=== PATIENT | male | born 1950 | race Caucasian/White ===

== ENCOUNTER → 2016-07-30 | Outpatient (CLI) | payer OTHER ==
[~2016-07-30] MED LIST: AMBIEN10 M1 PO; OMEPRAZOLE20 M2 PO; REMERON SOLTAB45 MG PO; REMERON45 M1 PO; SIMVASTATIN40 MG PO; VISTARIL50 MG PO
[2016-07-30 10:03] LABS: BASO # 0.1 10*3/uL (0.0-0.1); BASO % 0.8 % (0.0-1.0); EOS # 0.3 10*3/uL (0.0-0.4); EOS % 2.7 % (1.0-4.0); HEMATOCRIT 44.7 % (42.0-52.0); IG # 0.1 10*3/uL (0.0-0.1); LYMPH # 2.5 10*3/uL (1.3-4.4); LYMPH % 21.8 % (27.0-41.0); MEAN CORPUSCULAR HGB 32.5 pg (27.0-31.0); MEAN CORPUSCULAR HGB CONC 33.6 g/dl (33.0-37.0); MEAN PLATELET VOLUME 10.1 fl (9.6-12.3); MONO # 1.4 10*3/uL (0.1-1.0); MONO % 12.4 % (3.0-9.0); NEUT # 7.1 10*3/uL (2.3-7.9); NEUT % 61.9 % (47.0-73.0); PLATELET COUNT AUTOMATED 238 10*3/uL (130-400); RED BLOOD COUNT 4.61 10*6/uL (4.50-5.90); WHITE BLOOD COUNT 11.4 10*3/uL (4.8-10.8)
== END | disposition home or self-care (01) ==
LOC: LAB 09:36
PROVIDERS: Family Medicine
DX: D72.829 Elevated white blood cell count, unspecified (principal)

== ENCOUNTER → 2017-07-11 | Outpatient (CLI) | payer OTHER ==
[2017-07-11 12:12] LABS: ALBUMIN 3.5 gm/dl (3.1-4.5); ALKALINE PHOSPHATASE 66 U/L (45-117); BUN 13 mg/dl (7-24); CHLORIDE 102 mmol/L (98-107); CREATININE 0.97 mg/dL (0.70-1.30); POTASSIUM 3.7 mmol/L (3.5-5.1); SGOT/AST 9 IU/L (3-35); SGPT/ALT 17 U/L (12-78); SODIUM 137 mmol/L (136-145); TOTAL PROTEIN 7.3 gm/dL (6.4-8.2)
[2017-07-11 12:21] LABS: BASO # 0.1 10*3/uL (0.0-0.1); BASO % 1.2 % (0.0-1.0); EOS # 0.1 10*3/uL (0.0-0.4); EOS % 0.9 % (1.0-4.0); HEMATOCRIT 45.3 % (42.0-52.0); HEMOGLOBIN 15.3 g/dl (14.0-18.0); LYMPH # 2.2 10*3/uL (1.3-4.4); LYMPH % 23.8 % (27.0-41.0); MEAN CELL VOLUME 96.2 fl (80.0-94.0); MEAN CORPUSCULAR HGB 32.5 pg (27.0-31.0); MEAN CORPUSCULAR HGB CONC 33.8 g/dl (33.0-37.0); MEAN PLATELET VOLUME 11.1 fl (9.6-12.3); MONO # 0.2 10*3/uL (0.1-1.0); MONO % 1.6 % (3.0-9.0); NEUT # 6.4 10*3/uL (2.3-7.9); NEUT % 70.2 % (47.0-73.0); PLATELET COUNT AUTOMATED 180 10*3/uL (130-400); RED BLOOD COUNT 4.71 10*6/uL (4.50-5.90); RED CELL DISTRI WIDTH 12.6 % (0-14.5); WHITE BLOOD COUNT 9.1 10*3/uL (4.8-10.8)
== END | disposition home or self-care (01) ==
LOC: LAB 11:14
PROVIDERS: Internal Medicine
DX: C34.90 Malignant neoplasm of unspecified part of unspecified bronchus or lung (principal)

== ENCOUNTER → 2017-07-18 | Outpatient (CLI) | payer OTHER ==
[2017-07-18 09:16] LABS: HEMATOCRIT 39.7 % (42.0-52.0); HEMOGLOBIN 13.6 g/dl (14.0-18.0); MEAN CORPUSCULAR HGB 32.5 pg (27.0-31.0); MEAN CORPUSCULAR HGB CONC 34.3 g/dl (33.0-37.0); MEAN PLATELET VOLUME 9.6 fl (9.6-12.3); PLATELET COUNT AUTOMATED 142 10*3/uL (130-400); RED BLOOD COUNT 4.18 10*6/uL (4.50-5.90); RED CELL DISTRI WIDTH 12.3 % (0-14.5); WHITE BLOOD COUNT 3.1 10*3/uL (4.8-10.8)
[2017-07-18 09:39] LABS: ALBUMIN 3.2 gm/dl (3.1-4.5); ALKALINE PHOSPHATASE 72 U/L (45-117); BUN 6 mg/dl (7-24); CHLORIDE 105 mmol/L (98-107); CREATININE 0.81 mg/dL (0.70-1.30); POTASSIUM 3.5 mmol/L (3.5-5.1); SGOT/AST 15 IU/L (3-35); SGPT/ALT 19 U/L (12-78); SODIUM 139 mmol/L (136-145); TOTAL CELLS COUNTED 100 #CELLS; TOTAL PROTEIN 6.9 gm/dL (6.4-8.2)
[2017-07-18 09:40] LABS: PLATELET SUFFICIENCY NORMAL (NORMAL)
[2017-07-18 09:41] LABS: ATYPICAL LYMPHS 3 % (0-0)
== END | disposition home or self-care (01) ==
LOC: LAB 08:54
PROVIDERS: Internal Medicine
DX: C34.90 Malignant neoplasm of unspecified part of unspecified bronchus or lung (principal)

== ENCOUNTER → 2017-08-01 | Outpatient (CLI) | payer OTHER ==
[2017-08-01 11:37] LABS: BASO # 0.1 10*3/uL (0.0-0.1); EOS % 0.1 % (1.0-4.0); HEMATOCRIT 45.8 % (42.0-52.0); HEMOGLOBIN 15.2 g/dl (14.0-18.0); LYMPH # 3.1 10*3/uL (1.3-4.4); LYMPH % 29.1 % (27.0-41.0); MEAN CELL VOLUME 93.1 fl (80.0-94.0); MEAN CORPUSCULAR HGB 30.9 pg (27.0-31.0); MEAN CORPUSCULAR HGB CONC 33.2 g/dl (33.0-37.0); MEAN PLATELET VOLUME 9.5 fl (9.6-12.3); MONO # 0.2 10*3/uL (0.1-1.0); MONO % 1.9 % (3.0-9.0); NEUT % 66.5 % (47.0-73.0); PLATELET COUNT AUTOMATED 337 10*3/uL (130-400); RED BLOOD COUNT 4.92 10*6/uL (4.50-5.90); RED CELL DISTRI WIDTH 12.8 % (0-14.5); WHITE BLOOD COUNT 10.5 10*3/uL (4.8-10.8)
[2017-08-01 12:09] LABS: ALBUMIN 3.4 gm/dl (3.1-4.5); CREATININE 1.8 mg/dL (0.70-1.30); POTASSIUM 4.2 mmol/L (3.5-5.1); TOTAL PROTEIN 7.7 gm/dL (6.4-8.2)
== END ==
LOC: LAB 11:17
PROVIDERS: Internal Medicine
DX: C34.90 Malignant neoplasm of unspecified part of unspecified bronchus or lung (principal)

== ENCOUNTER → 2017-08-08 | Outpatient (CLI) | payer OTHER ==
[2017-08-08 14:32] LABS: BASO # 0.1 10*3/uL (0.0-0.1); BASO % 1.2 % (0.0-1.0); EOS # 0.1 10*3/uL (0.0-0.4); EOS % 1.2 % (1.0-4.0); HEMATOCRIT 36.5 % (42.0-52.0); HEMOGLOBIN 12.4 g/dl (14.0-18.0); LYMPH # 2.9 10*3/uL (1.3-4.4); LYMPH % 50.2 % (27.0-41.0); MEAN CELL VOLUME 93.1 fl (80.0-94.0); MEAN CORPUSCULAR HGB 31.6 pg (27.0-31.0); MEAN PLATELET VOLUME 10.5 fl (9.6-12.3); MONO # 0.4 10*3/uL (0.1-1.0); MONO % 6.6 % (3.0-9.0); NEUT # 2.3 10*3/uL (2.3-7.9); NEUT % 40.5 % (47.0-73.0); PLATELET COUNT AUTOMATED 96 10*3/uL (130-400); RED BLOOD COUNT 3.92 10*6/uL (4.50-5.90); RED CELL DISTRI WIDTH 12.6 % (0-14.5); WHITE BLOOD COUNT 5.8 10*3/uL (4.8-10.8)
[2017-08-08 14:49] LABS: ALBUMIN 3.3 gm/dl (3.1-4.5); CREATININE 1.67 mg/dL (0.70-1.30)
== END | disposition home or self-care (01) ==
LOC: LAB 13:47
PROVIDERS: Internal Medicine
DX: C34.90 Malignant neoplasm of unspecified part of unspecified bronchus or lung (principal)

== ENCOUNTER → 2017-08-23 | Outpatient (CLI) | payer OTHER ==
[2017-08-23 10:21] LABS: HEMATOCRIT 35.1 % (42.0-52.0); HEMOGLOBIN 12.2 g/dl (14.0-18.0); MEAN CELL VOLUME 92.1 fl (80.0-94.0); MEAN CORPUSCULAR HGB CONC 34.8 g/dl (33.0-37.0); MEAN PLATELET VOLUME 9.8 fl (9.6-12.3); PLATELET COUNT AUTOMATED 207 10*3/uL (130-400); RED BLOOD COUNT 3.81 10*6/uL (4.50-5.90); RED CELL DISTRI WIDTH 13.6 % (0-14.5)
[2017-08-23 10:49] LABS: ALBUMIN 3.5 gm/dl (3.1-4.5); CHLORIDE 104 mmol/L (98-107); POTASSIUM 3.9 mmol/L (3.5-5.1); SODIUM 139 mmol/L (136-145)
[2017-08-23 10:55] LABS: ALKALINE PHOSPHATASE 73 U/L (45-117); BUN 16 mg/dl (7-24); CREATININE 1.09 mg/dL (0.70-1.30); SGOT/AST 18 IU/L (3-35); SGPT/ALT 19 U/L (12-78); TOTAL PROTEIN 7.2 gm/dL (6.4-8.2)
[2017-08-23 11:23] LABS: BASOPHILS 1 % (0-1); TOTAL CELLS COUNTED 100 #CELLS
[2017-08-23 11:24] LABS: PLATELET SUFFICIENCY NORMAL (NORMAL)
== END | disposition home or self-care (01) ==
LOC: LAB 09:54
PROVIDERS: Internal Medicine
DX: C34.90 Malignant neoplasm of unspecified part of unspecified bronchus or lung (principal)

== ENCOUNTER → 2017-08-29 | Outpatient (CLI) | payer OTHER ==
[2017-08-29 11:44] LABS: EOS # 0.1 10*3/uL (0.0-0.4); EOS % 1.3 % (1.0-4.0); HEMATOCRIT 34.8 % (42.0-52.0); HEMOGLOBIN 11.6 g/dl (14.0-18.0); LYMPH # 2.1 10*3/uL (1.3-4.4); LYMPH % 53.3 % (27.0-41.0); MEAN CELL VOLUME 93.3 fl (80.0-94.0); MEAN CORPUSCULAR HGB 31.1 pg (27.0-31.0); MEAN CORPUSCULAR HGB CONC 33.3 g/dl (33.0-37.0); MEAN PLATELET VOLUME 10.1 fl (9.6-12.3); MONO # 0.4 10*3/uL (0.1-1.0); MONO % 10.6 % (3.0-9.0); NEUT # 1.3 10*3/uL (2.3-7.9); NEUT % 33.5 % (47.0-73.0); PLATELET COUNT AUTOMATED 100 10*3/uL (130-400); RED BLOOD COUNT 3.73 10*6/uL (4.50-5.90); RED CELL DISTRI WIDTH 13.3 % (0-14.5)
[2017-08-29 12:02] LABS: ALBUMIN 3.4 gm/dl (3.1-4.5); ALKALINE PHOSPHATASE 84 U/L (45-117); BUN 8 mg/dl (7-24); CHLORIDE 104 mmol/L (98-107); POTASSIUM 4.4 mmol/L (3.5-5.1); SGOT/AST 10 IU/L (3-35); SGPT/ALT 17 U/L (12-78); SODIUM 139 mmol/L (136-145); TOTAL PROTEIN 7.3 gm/dL (6.4-8.2)
== END | disposition home or self-care (01) ==
LOC: LAB 10:57
PROVIDERS: Internal Medicine
DX: C34.90 Malignant neoplasm of unspecified part of unspecified bronchus or lung (principal)

== ENCOUNTER 2018-06-03 18:33 | Emergency (ER) | payer OTHER ==
[~2018-06-03] VITALS: Ht 177.8 cm; Wt 98.9 kg
--- NOTE | ~2018-06-03 | EKG ---
[place], [place] ELECTROCARDIOGRAM REPORT NAME: BETO SAHNI UNIT #: [id number] ROOM: DOCTOR: EPIPHANY DRAFT REPORT BIRTHDATE: [birth year] [facility] Test Date: 2018-06-03 Test Time: 18:57:32 Pat Name: BETO SAHNI Department: ER Room: Gender: Dean Of Instruction: [place] Baron : 1950 Requested By: DENZEL SYKES PA-C Order Number: [id number] Reading MD: Mikayla Sampson MD Measurements Intervals [place] Rate: 106 P: 61 HI: 154 QRS: -79 QRSD: 128 T: 53 QT: 389 QTc: 517 Interpretive Statements Sinus tachycardia Right bundle branch block Inferior infarct, old Electronically Signed On 06-04-2018 14:23:47 PST by Mikayla Sampson MD CM:[email or web address]:ELECTROCARDIOGRAM REPORT [id number] DENZEL SYKES PA-C EPIPHANY DRAFT REPORT DENZEL SYKES PA-C
[2018-06-03] MEDS ORDERED: DELTASONE20 M1 PO (19:30)
[2018-06-03] MEDS ORDERED: VIBRAMYCIN100 MG PO (19:30)
[2018-06-03] MEDS ORDERED: TESSALON PERLE100 M1 PO (19:30)
[2018-06-03 19:37] LABS: BASO % 0.2 % (0.0-1.0); EOS % 0.1 % (1.0-4.0); HEMATOCRIT 42.7 % (42.0-52.0); HEMOGLOBIN 14.8 g/dl (14.0-18.0); LYMPH # 1.7 10*3/uL (1.3-4.4); LYMPH % 10.5 % (27.0-41.0); MEAN CELL VOLUME 94.1 fl (80.0-94.0); MEAN CORPUSCULAR HGB 32.6 pg (27.0-31.0); MEAN CORPUSCULAR HGB CONC 34.7 g/dl (33.0-37.0); MEAN PLATELET VOLUME 9.8 fl (9.6-12.3); MONO # 0.8 10*3/uL (0.1-1.0); NEUT # 13.2 10*3/uL (2.3-7.9); NEUT % 83.8 % (47.0-73.0); PLATELET COUNT AUTOMATED 253 10*3/uL (130-400); RED BLOOD COUNT 4.54 10*6/uL (4.50-5.90); RED CELL DISTRI WIDTH 12.8 % (0-14.5); WHITE BLOOD COUNT 15.7 10*3/uL (4.8-10.8)
[2018-06-03 19:47] LABS: INTERNATIONAL NORM RATIO 1.1 (2.0-3.5)
[2018-06-03 19:53] LABS: ALBUMIN 3.5 gm/dl (3.1-4.5); ALKALINE PHOSPHATASE 82 U/L (45-117); BUN 12 mg/dl (7-24); CHLORIDE 101 mmol/L (98-107); CREATININE 0.89 mg/dL (0.70-1.30); LIPASE 126 U/L (73-393); POTASSIUM 3.5 mmol/L (3.5-5.1); SGOT/AST 24 IU/L (3-35); SGPT/ALT 22 U/L (12-78); SODIUM 137 mmol/L (136-145); TOTAL PROTEIN 7.5 gm/dL (6.4-8.2)
[2018-06-03 19:56] LABS: TROPONIN I < 0.015 ng/ml (<0.045)
[2018-06-03 20:25] VITALS: BP 156/87
[2018-06-03 21:18] LABS: BILIRUBIN NEGATIVE (NEGATIVE); BLOOD NEGATIVE (NEGATIVE); CLARITY CLEAR (CLEAR); COLOR YELLOW (YELLOW); GLUCOSE NEGATIVE (NEGATIVE); KETONE 1+ (NEGATIVE); LEUKO ESTERASE NEGATIVE (NEGATIVE); NITRITE NEGATIVE (NEGATIVE); PH 8.5 (5.0-9.0); UROBILINOGEN 0.2 E.U./dl (0.2-1.0)
[2018-06-03 21:28] LABS: BACTERIA TRACE; MUCOUS 1+; RBC 0-2 rbc/hpf (0-2)
[2018-06-03] MEDS ORDERED: REGLAN10 M1 PO (21:34)
== END 2018-06-03 21:39 | disposition left against medical advice (07) ==
LOC: ED 18:33
PROVIDERS: Physician Assistant
DX: R42 Dizziness and giddiness (principal); R11.0 Nausea; R68.83 Chills (without fever); M54.5 Low back pain; R79.1 Abnormal coagulation profile; I25.2 Old myocardial infarction; Z79.899 Other long term (current) drug therapy; Z85.118 Personal history of other malignant neoplasm of bronchus and lung; Z90.2 Acquired absence of lung [part of]

== ENCOUNTER 2018-09-21 12:19 | Emergency (ER) | payer MEDICARE ==
[~2018-09-21] VITALS: Wt 104.3 kg
[~2018-09-21 12:19] MED LIST changes: +DELTASONE20 M1 PO; +REGLAN10 M1 PO; +TESSALON PERLE100 M1 PO; +VIBRAMYCIN100 MG PO
[2018-09-21 12:22] VITALS: BP 103/60
[2018-09-21] MEDS ORDERED: LORAZEPAM1 MG PO (12:24)
[2018-09-21] MEDS ORDERED: CITALOPRAM HYDR40 MG PO (12:24)
[2018-09-21 12:54] LABS: HEMATOCRIT 44.1 % (42.0-52.0); HEMOGLOBIN 14.4 g/dl (14.0-18.0); MEAN CELL VOLUME 98.7 fl (80.0-94.0); MEAN CORPUSCULAR HGB 32.2 pg (27.0-31.0); MEAN CORPUSCULAR HGB CONC 32.7 g/dl (33.0-37.0); MEAN PLATELET VOLUME 9.9 fl (9.6-12.3); PLATELET COUNT AUTOMATED 267 10*3/uL (130-400); RED BLOOD COUNT 4.47 10*6/uL (4.50-5.90); RED CELL DISTRI WIDTH 12.4 % (0-14.5); WHITE BLOOD COUNT 16.7 10*3/uL (4.8-10.8)
[2018-09-21 13:14] LABS: PLATELET SUFFICIENCY NORMAL (NORMAL); TOTAL CELLS COUNTED 100 #CELLS
[2018-09-21 13:20] LABS: ALBUMIN 3.2 gm/dl (3.1-4.5); ALKALINE PHOSPHATASE 96 U/L (45-117); BUN 11 mg/dl (7-24); CHLORIDE 105 mmol/L (98-107); CREATININE 1.11 mg/dL (0.70-1.30); POTASSIUM 4.1 mmol/L (3.5-5.1); SGOT/AST 9 IU/L (3-35); SGPT/ALT 15 U/L (12-78); SODIUM 139 mmol/L (136-145); TOTAL PROTEIN 7.6 gm/dL (6.4-8.2)
[2018-09-21] MEDS ORDERED: PREDNISONE50 MG PO (13:46)
[2018-09-21] MEDS ORDERED: PROAIR HFA8.5 GM INH (13:46)
[2018-09-21] MEDS ORDERED: TESSALON PERLE100 MG PO (13:46)
[2018-09-21] MEDS ORDERED: AVPAK AZITHROM250 MG PO (13:46)
== END 2018-09-21 13:49 | disposition home or self-care (01) ==
LOC: ED 12:19
PROVIDERS: Nurse Practitioner Family
DX: J20.9 Acute bronchitis, unspecified (principal); E78.5 Hyperlipidemia, unspecified; F17.290 Nicotine dependence, other tobacco product, uncomplicated; Z79.899 Other long term (current) drug therapy

== ENCOUNTER 2020-05-06 11:01 | Inpatient (IN) | payer MEDICARE ==
[~2020-05-06] VITALS: Ht 177.8 cm; Wt 95.3 kg
[2020-05-06] VITALS (11 sets, daily range): BP systolic 102–132; BP diastolic 59–82
[~2020-05-06 11:01] MED LIST changes: +AVPAK AZITHROM250 MG PO; +CITALOPRAM HYDR40 MG PO; +LORAZEPAM1 MG PO; +PREDNISONE50 MG PO; +PROAIR HFA8.5 GM INH; +REMERON15 M2 PO; -REMERON45 M1 PO; +TESSALON PERLE100 MG PO
--- NOTE | 2020-05-06 12:15 | NUR ---
YARIEL GIVEN BY RAN Álvarez RN
[2020-05-06 12:24] LABS: BASO % 0.3 % (0.0-1.0); LYMPH # 1.6 10*3/uL (1.3-4.4); LYMPH % 10.9 % (27.0-41.0); MEAN CELL VOLUME 97.6 fl (80.0-94.0); MEAN CORPUSCULAR HGB 32.3 pg (27.0-31.0); MEAN CORPUSCULAR HGB CONC 33.1 g/dl (33.0-37.0); MEAN PLATELET VOLUME 9.8 fl (9.6-12.3); MONO # 0.5 10*3/uL (0.1-1.0); MONO % 3.1 % (3.0-9.0); NEUT # 12.3 10*3/uL (2.3-7.9); NEUT % 85.4 % (47.0-73.0); PLATELET COUNT AUTOMATED 299 10*3/uL (130-400); RED BLOOD COUNT 5.02 10*6/uL (4.50-5.90); RED CELL DISTRI WIDTH 13.2 % (0-14.5); WHITE BLOOD COUNT 14.4 10*3/uL (4.8-10.8)
[2020-05-06 12:42] LABS: ALBUMIN 3.4 gm/dl (3.1-4.5); ALKALINE PHOSPHATASE 85 U/L (45-117); BUN 9 mg/dl (7-24); CHLORIDE 104 mmol/L (98-107); CREATININE 1.11 mg/dL (0.70-1.30); LIPASE 191 U/L (73-393); SGOT/AST 16 IU/L (3-35); SGPT/ALT 17 U/L (12-78); SODIUM 141 mmol/L (136-145); TOTAL PROTEIN 7.8 gm/dL (6.4-8.2)
--- NOTE | 2020-05-06 12:43 | NUR ---
YARIEL GIVEN BY ELDA Wang RN
[2020-05-06 12:45] LABS: TROPONIN I < 0.015 ng/ml (<0.045)
--- NOTE | 2020-05-06 14:28 | NUR ---
PATIENT RESTING IN BED. AMBULATED TO BATHROOM WITH STEADY GAIT. PROVIDED WITH WARM BLANKET AND HE STATES HE WAS GOING TO TRY AND GET SOME SLEEP. CALL LIGHT WITHIN REACH.
[2020-05-06 14:43] LABS: BILIRUBIN Negative (Negative); BLOOD Negative (Negative); CLARITY Cloudy (Clear); COLOR Dark Yellow (Yellow); GLUCOSE Negative (Negative); KETONE Trace (Negative); LEUKO ESTERASE Negative (Negative); NITRITE Negative (Negative); PH 5.5 (4.5-8.0); SPECIFIC GRAVITY 1.025 (1.001-1.030)
[2020-05-06 15:05] LABS: CALCIUM OXALATE CRYSTALS 2+
[2020-05-06 15:06] LABS: BACTERIA TRACE; MUCOUS 3+
--- NOTE | 2020-05-06 16:00 | NUR ---
A 69, admitted to , under the services of VALENTIN Reyes DO with a diagnosis of AFIB WITH RVR, NAUSEA VOMITING. Chief complaint is NAUSEA AND VOMITING. Patient arrived via bed from ER. Monitor applied. Initial assessment completed. Vital signs taken and recorded. VALENTIN REYES DO notified of admission to the unit. Orders received. See assessment for past medical history, medications and allergies. Patient and/or family oriented to unit. [facility] visitation policy reviewed. Clothing/patient valuable form completed. DENZEL MONTANEZ
--- NOTE | 2020-05-06 16:47 | NUR ---
[facility] CONTACTED REGARDING PT MED REC.
--- NOTE | 2020-05-06 16:47 | NUR ---
CONSULT CALLED TO DR MITCHELL ANSWERING SERVICE.
[2020-05-06] MEDS ORDERED: ZOLOFT25 MG PO (17:14)
[2020-05-06] MEDS ORDERED: 'XANAX1 MG PO (17:14)
--- NOTE | 2020-05-06 17:20 | NUR ---
DR WADDELL NOTIFIED THAT MED REC IS UPDATED.
--- NOTE | 2020-05-06 19:31 | NUR ---
24 HR chart check completed.
--- NOTE | 2020-05-06 22:28 | NUR ---
CALLED DR. DANIELSON FOR A NICOTINE PATCH, PT STATED HE ATLEAST SMOKES 1 PACK A DAY. SEE NEW ORDER.
--- NOTE | 2020-05-06 22:44 | NUR ---
TOOK NICOTINE PATCH INTO THE PATIENTS ROOM AND PATIENT THEN STATES HE MEANT HE NEEDED IT FOR THE MORNING. WHEN ASKED WHY HE DIDN'T WANT IT PLACED NOW HE SAID IT CAUSES HIM TO HAVE BAD NIGHTMARES.
[2020-05-07] VITALS (9 sets, daily range): BP systolic 93–116; BP diastolic 50–75
[2020-05-07 06:46] LABS: HEMATOCRIT 43.8 % (42.0-52.0); MEAN CELL VOLUME 99.5 fl (80.0-94.0); MEAN CORPUSCULAR HGB 31.6 pg (27.0-31.0); MEAN CORPUSCULAR HGB CONC 31.7 g/dl (33.0-37.0); MEAN PLATELET VOLUME 10.7 fl (9.6-12.3); PLATELET COUNT AUTOMATED 276 10*3/uL (130-400); RED CELL DISTRI WIDTH 13.3 % (0-14.5)
[2020-05-07 07:12] LABS: PLATELET SUFFICIENCY NORMAL (NORMAL); TOTAL CELLS COUNTED 100 #CELLS
[2020-05-07 07:13] LABS: ACT PARTIAL THROMBO TIME 38.2 SECONDS (20.0-32.1); ALBUMIN 2.8 gm/dl (3.1-4.5); ALKALINE PHOSPHATASE 62 U/L (45-117); BUN 9 mg/dl (7-24); CHLORIDE 111 mmol/L (98-107); CHOLESTEROL 117 mg/dL (<200); CREATININE 0.87 mg/dL (0.70-1.30); FREE T4 0.91 ng/dl (0.76-1.46); HDL CHOLESTEROL 31 mg/dl (40-60); INTERNATIONAL NORM RATIO 1.1 (2.0-3.5); LDL CHOLESTEROL 71 mg/dL (9-159); POTASSIUM 3.6 mmol/L (3.5-5.1); SGOT/AST 15 IU/L (3-35); SGPT/ALT 12 U/L (12-78); SODIUM 146 mmol/L (136-145); TOTAL PROTEIN 6.2 gm/dL (6.4-8.2); TRIGLYCERIDES 77 mg/dl (<150); VLDL CHOLESTEROL 15 mg/dL (6-40)
[2020-05-07 07:17] LABS: THYROID STIM HORMONE (HS) 0.524 uIU/ml (0.358-4.75)
--- NOTE | 2020-05-07 07:30 | NUR ---
TOOK OVER CARE OF PT AT THIS TIME. PT RESTING IN BED. RESPIRATIONS EASY AND UNLABORED ON ROOM AIR. NO S/S OF DISTRESS NOTED. NO COMPLAINTS VOICED BY PT. CARDIZEM DRIP AND FLUIDS INFUSING PER ORDERS. WILL CONTINUE TO MONITOR. CALL LIGHT IN REACH.
--- NOTE | 2020-05-07 12:40 | NUR ---
DR WADDELL NOTIFIED THAT PT BLOOD PRESSURE IS 90S/50S. PHYSICIAN STATES TO HOLD TOPROL XL AT THIS TIME.
--- NOTE | 2020-05-07 13:09 | NUR ---
Die Attaching Machine Tender in to talk to patient. Patient states lives at HOME with ALONE. There are NO steps in the home. Physician: KRISTEN Pharmacy: [facility] Home health services: NONE Patient's level of ADLs: INDEPENDENT Patient has working utilities: YES DME: NONE Follow-up physician's appointment after d/c: WILL BE MADE BY HOSPITALIST NURSE DIRECTOR ON DISCHARGE Does patient want to access PORTAL?: NO Discharge plan PT LIVES AT HOME ALONE AND IS INDEPENDENT IN HIS CARE. DENIES HE WILL HAVE NEEDS ON DISCHARGE. PLANS TO RETURN HOME WHEN MEDICALLY STABLE. WILL CONTINUE TO FOLLOW. STATES HE WILL HAVE A RIDE HOME.. JAVIER WYMAN
--- NOTE | 2020-05-07 14:58 | NUR ---
[facility] CALLED PER PT REQUEST. PT STATES THAT HE HAD APPOINTMENT TODAY AND ASKED THIS NURSE TO CALL AND NOTIFY CLINIC THAT HE WAS UNABLE TO MAKE APPOINTMENT DUE TO THESE CIRCUMSTANCES.
--- NOTE | 2020-05-07 15:00 | NUR ---
PT HAS CONVERTED TO NSR FROM AFIB. CARDIZEM DRIP DISCONTINUED PER DR MITCHELL ORDERS. PHYSICIAN ALSO STATES THAT HE HAS ORDERED IV DIGOXIN BUT TO NOT GIVE IT AT THIS TIME DUE TO PT CONVERTING AND HEART RATE DECREASING.
--- NOTE | 2020-05-07 21:50 | NUR ---
PT RESTING IN BED. NO C/O AT THIS TIME. RESP-EASY AND REGULAR. CALL LIGHT IN REACH. SEE SHIFT ASSESSMENT.
--- NOTE | 2020-05-07 23:14 | NUR ---
CALLED DR. MERCADO MADE AWARE PT MONITOR STRIP HAD A 9 BEAT RUN V-TACH PRIOR. THEN NOW HE IS HAVING FREQUENT RUNS OF 3 PVC'S. HR-LOW 100'S. NO ORDERS
--- NOTE | 2020-05-07 23:25 | NUR ---
CALLED DR. CAT ANSWERING SERVICE LEFT MESSAGE TO CALL REGARDING FREQUENT PVC'S. THEY WILL BEEP HIM.
[2020-05-08] VITALS: BP 134/76
--- NOTE | 2020-05-08 | NUR ---
PT RESTING IN BED. TOLERATING IV ANTIBIOTIC WITH NO PROBLEM. CALL LIGHT IN REACH. SEE SHIFT ASSESSMENT.
--- NOTE | 2020-05-08 00:07 | NUR ---
DR. JIMENEZ CALLED AWARE OF EKG CHANGES. NEW ORDER TAKEN AND REVIEWED.
--- NOTE | 2020-05-08 00:35 | NUR ---
TOLERATED TOPROL PER ORDER, SEE EMAR. CALL LIGHT IN REACH.
--- NOTE | 2020-05-08 04:00 | NUR ---
SLEEPING IN BED. RESP-EASY AND REGULAR. CALL LIGHT IN REACH.
--- NOTE | 2020-05-08 05:15 | NUR ---
ANTIBIOTICS INFUSING WITH NO PROBLEM. NO C/O AT THIS TIME. CALL LIGHT IN REACH.
[2020-05-08 05:47] LABS: BUN 8 mg/dl (7-24); CHLORIDE 110 mmol/L (98-107); CREATININE 0.86 mg/dL (0.70-1.30); POTASSIUM 3.7 mmol/L (3.5-5.1); SODIUM 144 mmol/L (136-145)
[2020-05-08 05:51] LABS: HEMATOCRIT 45.8 % (42.0-52.0); MEAN CELL VOLUME 96.6 fl (80.0-94.0); MEAN CORPUSCULAR HGB CONC 32.1 g/dl (33.0-37.0); MEAN PLATELET VOLUME 9.9 fl (9.6-12.3); PLATELET COUNT AUTOMATED 270 10*3/uL (130-400); RED BLOOD COUNT 4.74 10*6/uL (4.50-5.90)
[2020-05-08 07:07] LABS: BASOPHILS 1 % (0-1); PLATELET SUFFICIENCY NORMAL (NORMAL); TOTAL CELLS COUNTED 100 #CELLS
[2020-05-08 08:00] VITALS: BP 134/92
--- NOTE | 2020-05-08 11:43 | NUR ---
CONTINUES TO STATE HE WILL RETURN HOME WITH NO NEW NEEDS. WILL CONTINUE TO FOLLOW.
[2020-05-08] MEDS ORDERED: METOPROLOL SUCC25 M2 PO (13:39)
[2020-05-08] MEDS ORDERED: XARE20MG PO (13:39)
[2020-05-08] MEDS ORDERED: FLAGYL500 MG PO (13:40)
[2020-05-08] MEDS ORDERED: CIPRO500 MG PO (13:40)
--- NOTE | 2020-05-08 14:11 | NUR ---
[facility] Discharge instructions reviewed with patient/family. Patient receptive and verbalizes understanding. Follow-up care arranged. Written instructions given to patient/family. LUCAS BENSON
== END 2020-05-08 14:10 | disposition home or self-care (01) | DRG 872 ==
LOC: ED 11:01 → EDHOLD 13:23 → 5E 13:23
PROVIDERS: Emergency Medicine; Family Medicine; Hospitalist; ADMIT Internal Medicine; ATTEND Internal Medicine
DX: A41.9 Sepsis, unspecified organism (principal); K52.9 Noninfective gastroenteritis and colitis, unspecified; I25.10 Atherosclerotic heart disease of native coronary artery without angina pectoris; F41.9 Anxiety disorder, unspecified; R73.9 Hyperglycemia, unspecified; F17.210 Nicotine dependence, cigarettes, uncomplicated; I48.0 Paroxysmal atrial fibrillation; I45.10 Unspecified right bundle-branch block; Z68.30 Body mass index [BMI] 30.0-30.9, adult; I25.2 Old myocardial infarction; Z85.118 Personal history of other malignant neoplasm of bronchus and lung; Z80.0 Family history of malignant neoplasm of digestive organs; Z82.49 Family history of ischemic heart disease and other diseases of the circulatory system; Z79.899 Other long term (current) drug therapy

== ENCOUNTER → 2021-04-05 | Outpatient (CLI) | payer MEDICARE ==
[~2021-04-05] MED LIST changes: +'XANAX1 MG PO; +CIPRO500 MG PO; +FLAGYL500 MG PO; +METOPROLOL SUCC25 M2 PO; +XARE20MG PO; +ZOLOFT25 MG PO
== END | disposition home or self-care (01) ==
LOC: COVID19 16:56
PROVIDERS: ATTEND Internal Medicine
DX: Z11.52 Encounter for screening for COVID-19 (principal)

== ENCOUNTER → 2021-12-15 | Outpatient (CLI) | payer MEDICARE | END | disposition home or self-care (01) | LOC: CARD 01:29 | PROVIDERS: ATTEND Internal Medicine Cardiovascular Disease | DX: R94.31 Abnormal electrocardiogram [ECG] [EKG] (principal); I21.3 ST elevation (STEMI) myocardial infarction of unspecified site ==

== ENCOUNTER 2021-12-20 16:59 | Emergency (ER) | payer MEDICARE ==
[~2021-12-20] VITALS: Ht 177.8 cm; Wt 100.7 kg
[2021-12-20] MEDS ORDERED: GOOD SENSE ASPI81 M1 PO (17:04)
[2021-12-20 17:52] LABS: BASO # 0.1 10*3/uL (0.0-0.1); BASO % 0.2 % (0.0-1.0); HEMATOCRIT 47.8 % (42.0-52.0); MEAN CELL VOLUME 95.6 fl (80.0-94.0); MEAN CORPUSCULAR HGB 31.2 pg (27.0-31.0); MEAN CORPUSCULAR HGB CONC 32.6 g/dl (33.0-37.0); MEAN PLATELET VOLUME 9.6 fl (9.6-12.3); MONO # 1.1 10*3/uL (0.1-1.0); MONO % 5.3 % (3.0-9.0); NEUT # 18.1 10*3/uL (2.3-7.9); NEUT % 88.9 % (47.0-73.0); PLATELET COUNT AUTOMATED 236 10*3/uL (130-400); RED CELL DISTRI WIDTH 12.7 % (0-14.5); WHITE BLOOD COUNT 20.3 10*3/uL (4.8-10.8)
[2021-12-20 18:02] LABS: INTERNATIONAL NORM RATIO 1.1 (2.0-3.5)
[2021-12-20 18:09] LABS: ALKALINE PHOSPHATASE 81 U/L (45-117); BUN 11 mg/dl (7-24); CHLORIDE 109 mmol/L (98-107); CREATININE 1.08 mg/dL (0.70-1.30); LIPASE 155 U/L (73-393); POTASSIUM 3.5 mmol/L (3.5-5.1); SGOT/AST 21 IU/L (3-35); SGPT/ALT 19 U/L (12-78); SODIUM 143 mmol/L (136-145); TOTAL PROTEIN 7.2 gm/dL (6.4-8.2)
[2021-12-20 22:18] VITALS: BP 130/77
== END 2021-12-20 23:30 | disposition short-term general hospital (02) ==
LOC: ED 16:59
PROVIDERS: Emergency Medicine
DX: S72.92XA Unspecified fracture of left femur, initial encounter for closed fracture (principal); S22.42XA Multiple fractures of ribs, left side, initial encounter for closed fracture; Z79.82 Long term (current) use of aspirin; F17.210 Nicotine dependence, cigarettes, uncomplicated; W17.89XA Other fall from one level to another, initial encounter; Y93.89 Activity, other specified; Y92.89 Other specified places as the place of occurrence of the external cause; Y99.8 Other external cause status

== ENCOUNTER 2022-01-04 11:46 | Emergency (ER) | payer MEDICARE ==
[~2022-01-04] VITALS: Ht 177.8 cm; Wt 72.6 kg
[~2022-01-04 11:46] MED LIST changes: +GOOD SENSE ASPI81 M1 PO
[2022-01-04 12:03] VITALS: BP 104/75
[2022-01-04 12:32] LABS: BASO # 0.1 10*3/uL (0.0-0.1); BASO % 0.6 % (0.0-1.0); EOS % 0.1 % (1.0-4.0); HEMATOCRIT 40.9 % (42.0-52.0); LYMPH # 2.3 10*3/uL (1.3-4.4); LYMPH % 16.9 % (27.0-41.0); MEAN CELL VOLUME 97.8 fl (80.0-94.0); MEAN CORPUSCULAR HGB 31.6 pg (27.0-31.0); MEAN CORPUSCULAR HGB CONC 32.3 g/dl (33.0-37.0); MONO # 0.9 10*3/uL (0.1-1.0); MONO % 6.4 % (3.0-9.0); NEUT # 10.2 10*3/uL (2.3-7.9); NEUT % 75.6 % (47.0-73.0); PLATELET COUNT AUTOMATED 680 10*3/uL (130-400); RED BLOOD COUNT 4.18 10*6/uL (4.50-5.90); RED CELL DISTRI WIDTH 13.2 % (0-14.5); WHITE BLOOD COUNT 13.5 10*3/uL (4.8-10.8)
[2022-01-04 12:49] LABS: ALKALINE PHOSPHATASE 106 U/L (45-117); BUN 9 mg/dl (7-24); CHLORIDE 102 mmol/L (98-107); CREATININE 0.96 mg/dL (0.70-1.30); LIPASE 181 U/L (73-393); POTASSIUM 4.1 mmol/L (3.5-5.1); SGOT/AST 18 IU/L (3-35); SGPT/ALT 25 U/L (12-78); SODIUM 138 mmol/L (136-145); TOTAL PROTEIN 7.4 gm/dL (6.4-8.2)
[2022-01-04] MEDS ORDERED: REGLAN10 M1 PO (17:40)
== END 2022-01-04 17:53 | disposition home or self-care (01) ==
LOC: ED 11:46
PROVIDERS: Physician Assistant
DX: R11.2 Nausea with vomiting, unspecified (principal); R10.13 Epigastric pain; Z79.899 Other long term (current) drug therapy; Z79.82 Long term (current) use of aspirin; F17.210 Nicotine dependence, cigarettes, uncomplicated

== ENCOUNTER → 2023-03-10 | Outpatient (CLI) | payer OTHER | END | disposition home or self-care (01) | LOC: CT 01:19 | PROVIDERS: ATTEND Internal Medicine | DX: D02.20 Carcinoma in situ of unspecified bronchus and lung (principal); I25.10 Atherosclerotic heart disease of native coronary artery without angina pectoris; I70.0 Atherosclerosis of aorta; M85.88 Other specified disorders of bone density and structure, other site ==

== ENCOUNTER → 2023-05-01 | Outpatient (CLI) | payer OTHER | END | disposition home or self-care (01) | LOC: RAD 17:18 | PROVIDERS: ATTEND Nurse Practitioner Family | DX: J40 Bronchitis, not specified as acute or chronic (principal) ==

== ENCOUNTER 2024-12-04 23:47 | Emergency (ER) | payer MEDICARE ==
[~2024-12-04] VITALS: Ht 182.9 cm; Wt 95.3 kg
[2024-12-04 23:57] VITALS: BP 155/89
[2024-12-05] MEDS ORDERED: Ondansetron Hydrochloride 4 MG TAB SL ONE ×2 (00:05→01:40)
[2024-12-05 00:19] LABS: HEMATOCRIT 48.4 % (42.0-52.0); MANUAL DIFF REFLEX YES; MEAN CELL VOLUME 93.3 fl (80.0-94.0); MEAN CORPUSCULAR HGB 30.3 pg (27.0-31.0); MEAN CORPUSCULAR HGB CONC 32.4 g/dl (33.0-37.0); PLATELET COUNT AUTOMATED 279 10*3/uL (130-400); RED BLOOD COUNT 5.19 10*6/uL (4.50-5.90); RED CELL DISTRI WIDTH 13.8 % (0-14.5); WHITE BLOOD COUNT 14.2 10*3/uL (4.8-10.8)
[2024-12-05 00:35] LABS: ATYPICAL LYMPHS 1 % (0-0); PLATELET SUFFICIENCY NORMAL (NORMAL); TOTAL CELLS COUNTED 100 #CELLS
[2024-12-05 00:36] LABS: OVALOCYTES FEW
[2024-12-05] MEDS ORDERED: Promethazine Hydrochloride 25 MG/ML VIAL IM ONE (00:50)
[2024-12-05 00:53] LABS: ALKALINE PHOSPHATASE 89 U/L (46-116); BUN 7 mg/dl (9-23); CHLORIDE 101 mmol/L (98-107); LIPASE 38 U/L (12-53); POTASSIUM 3.8 mmol/L (3.4-5.1); SGPT/ALT 12 U/L (5-49); TOTAL PROTEIN 7.4 gm/dL (6.0-8.0)
[2024-12-05] MEDS ORDERED: Piperacillin Sodium/Tazobact 50 ML IV ONE (01:25)
[2024-12-05] MEDS ORDERED: SODIUM CHLORIDE 0.9% 1,000 ML IV ONE (01:25)
[2024-12-05] MEDS ORDERED: MAGNESIUM OXIDE 400 MG TAB PO ONE (01:35)
== END 2024-12-05 01:45 | disposition left against medical advice (07) ==
LOC: ED 23:47
PROVIDERS: Internal Medicine
DX: K80.20 Calculus of gallbladder without cholecystitis without obstruction (principal); E83.42 Hypomagnesemia; D72.829 Elevated white blood cell count, unspecified; K21.9 Gastro-esophageal reflux disease without esophagitis; E78.00 Pure hypercholesterolemia, unspecified; F17.200 Nicotine dependence, unspecified, uncomplicated; Z79.82 Long term (current) use of aspirin; Z79.899 Other long term (current) drug therapy; Z98.890 Other specified postprocedural states